=== PATIENT | male | born 1985 | race Two or more races ===

== ENCOUNTER 2016-08-07 13:50 | Observation (INO) | payer SELFPAY ==
[~2016-08-07] VITALS: Ht 152.4 cm; Wt 73.3 kg
[2016-08-07 14:09] VITALS: BP 116/80; PULSE 105; RESP 16; TEMP 99.9; O2SAT 100
--- NOTE | 2016-08-07 14:40 | PD ---
HPI Chief Complaint: Abdominal Pain Time Seen by Provider: 14:26 Travel History International Travel<30 days: No Contact w/Intl Traveler<30days: No Traveled to known affect area: No History of Present Illness HPI Patient is a 31-year-old Nigerien-speaking male who presents to emergency room with complaints of lower abdominal pain. Patient reports that pain began this morning, reports that he was able to tolerate pain for a few hours but it became unbearable while at work. Reports that his whole lower abdomen hurts him but pain is worse in RLQ. Patient with no fevers or chills. Patient with no nausea or vomiting. Patient denies consultation diarrhea. Patient reports no pain like this in the past. PFSH Past Medical History Diabetes: Yes Patient Takes Glucophage: No Past Surgical History Surgical History: No Previous Surgery Social History Alcohol Use: Yes (OCCAS) Tobacco Use: Yes (RARELY) Substance Use: Yes (MARIJUANA LAST WEEK) Allergies-Medications (Allergen,Severity, Reaction): Coded Allergies: No Known Allergies (Unverified , 08/07/16) Reported Meds & Prescriptions Reported Meds & Active Scripts Active No Active Prescriptions or Reported Medications Review of Systems General / Constitutional: No: Fever Eyes: No: Visual changes HENT: No: Headaches Cardiovascular: No: Chest Pain or Discomfort Respiratory: No: Shortness of Breath Gastrointestinal: Positive: Abdominal Pain, No: Nausea, Vomiting, Diarrhea, Constipation Genitourinary: No: Dysuria Musculoskeletal: No: Pain Skin: No Rash Neurologic: No: Weakness Psychiatric: No: Depression Endocrine: No: Polydipsia Hematologic/Lymphatic: No: Easy Bruising Physical Exam Narrative GENERAL: Mild distress SKIN: Warm and dry. HEAD: Atraumatic. Normocephalic. EYES: Pupils equal and round. No scleral icterus. No injection or drainage. ENT: No nasal bleeding or discharge. Mucous membranes pink and moist. NECK: Trachea midline. No JVD. CARDIOVASCULAR: Regular rate and rhythm. No murmur appreciated. RESPIRATORY: No accessory muscle use. Clear to auscultation. Breath sounds equal bilaterally. GASTROINTESTINAL: Abdomen soft, increased tenderness to lower abdomen with guarding with palpation to right lower quadrant MUSCULOSKELETAL: No obvious deformities. No clubbing. No cyanosis. No edema. NEUROLOGICAL: Awake and alert. No obvious cranial nerve deficits. Motor grossly within normal limits. Normal speech. PSYCHIATRIC: Appropriate mood and affect; insight and judgment normal. Data Data Last Documented VS Vital Signs Date Time Temp Pulse Resp B/P Pulse Ox O2 Delivery O2 Flow Rate FiO2 08/07/16 16:27 90 18 134/74 98 Room Air 08/07/16 14:09 99.9 Orders Urinalysis - C+S If Indicated (08/07/16 14:16) Complete Blood Count With Diff (08/07/16 14:27) Comprehensive Metabolic Panel (08/07/16 14:27) Lipase (08/07/16 14:27) Prothrombin Time / Inr (Pt) (08/07/16 14:27) Act Partial Throm Time (Ptt) (08/07/16 14:27) Ct Abd/Pel W Iv Contrast(Rout) (08/07/16 14:27) Iv Access Insert/Monitor (08/07/16 14:27) Oral Contrast - Adult (08/07/16 15:21) Morphine Inj (Morphine Inj) (08/07/16 15:45) Sodium Chlor 0.9% 1000 Ml Inj (Ns 1000 M (08/07/16 15:45) Iohexol 350 Inj (Omnipaque 350 Inj) (08/07/16 15:57) Ciprofloxacin 400 Mg Premix (Cipro 400 M (08/07/16 16:30) Metronidazole 500 Mg Inj (Flagyl 500 Mg (08/07/16 16:30) Labs Laboratory Tests Test 08/07/16 08/07/16 14:40 14:44 Urine Collection Type CLEAN CATCH Urine Color DARK-YELLOW Urine Turbidity CLEAR Urine pH 7.0 Urine Specific [place] 1.024 Urine Protein TRACE mg/dL Urine Glucose (UA) 100 mg/dL Urine Ketones TRACE mg/dL Urine Occult Blood NEG Urine Nitrite NEG Urine Bilirubin NEG Urine Leukocyte Esterase NEG Urine WBC 0-2 /hpf Microscopic Urinalysis Comment CULT NOT INDICATED White Blood Count 15.0 TH/MM3 Red Blood Count 4.42 MIL/MM3 Hemoglobin 13.2 GM/DL Hematocrit 37.4 % Mean Corpuscular Volume 84.7 FL Mean Corpuscular Hemoglobin 29.8 PG Mean Corpuscular Hemoglobin 35.2 % Concent Red Cell Distribution Width 11.6 % Platelet Count 241 TH/MM3 Mean Platelet Volume 7.4 FL Neutrophils (%) (Auto) 82.4 % Lymphocytes (%) (Auto) 12.8 % Monocytes (%) (Auto) 4.4 % Eosinophils (%) (Auto) 0.1 % Basophils (%) (Auto) 0.3 % Neutrophils # (Auto) 12.4 TH/MM3 Lymphocytes # (Auto) 1.9 TH/MM3 Monocytes # (Auto) 0.7 TH/MM3 Eosinophils # (Auto) 0.0 TH/MM3 Basophils # (Auto) 0.0 TH/MM3 CBC Comment DIFF FINAL Differential Comment Prothrombin Time 10.5 SEC Prothromb Time International 1.0 RATIO Ratio Activated Partial 26.2 SEC Thromboplast Time Sodium Level 136 MEQ/L Potassium Level 3.4 MEQ/L Chloride Level 101 MEQ/L Carbon Dioxide Level 27.4 MEQ/L Anion Gap 8 MEQ/L Blood Urea Nitrogen 11 MG/DL Creatinine 0.86 MG/DL Estimat Glomerular Filtration 102 ML/MIN Rate Random Glucose 136 MG/DL Calcium Level 8.5 MG/DL Total Bilirubin 1.2 MG/DL Aspartate Amino Transf 10 U/L (AST/SGOT) Alanine Aminotransferase 23 U/L (ALT/SGPT) Alkaline Phosphatase 131 U/L Total Protein 7.6 GM/DL Albumin 3.6 GM/DL Lipase 80 U/L MDM Medical Decision Making Medical Screen Exam Complete: Yes Emergency Medical Condition: Yes Interpretation(s) Vital Signs Date Time Temp Pulse Resp B/P Pulse Ox O2 Delivery O2 Flow Rate FiO2 08/07/16 14:09 99.9 105 16 116/80 100 Differential Diagnosis Acute appendicitis, colitis, cystitis, gastroenteritis Narrative Course Nigerien automotive parts interpreter was utilized to speak to patient Patient is a 31-year-old male who presents to emergency room with complaints of abdominal pain. Patient reports that he has been having increased lower abdominal pain since this morning. Patient with no fevers or chills, no nausea or vomiting, no constipation or diarrhea. On evaluation, patient with guarding on evaluation with palpation to right lower quadrant. Discussed with patient need for labs as well as CT of the abdomen pelvis to evaluate for possible appendicitis. Patient is agreeable to studies cbc: wbc 15 hgb: 13.2 hct: 37.4 platelets: 241 bmp: sodium: 136 chloride; 27.4 potassium: 3.4 bun:11 cr: 0.86 glucose 136 ast 10 alt 23 alk phos 131 lipase 80 total bili: 1.2 Patient with a 15,000 white count and a CAT scans any which shows: Last Impressions Abdomen/Pelvis CT 08/07/16 1427 Signed Impressions: Service Date/Time: Sunday, August 07, 2016 15:51 - CONCLUSION: Abnormal right lower quadrant with inflammatory changes and a small amount of free fluid off the tip of the cecum. In the right lower quadrant question as to an appendicolith and additionally suggestion that there may be in the differential inflammatory change in the distal small bowel terminal ileum such as a possibility of regional enteritis Heriberto Cavazos MD Based on clinical evaluation of patient, patient most likely with acute appendicitis. There is suggestions that differential may include possibly regional enteritis, patient with no nausea vomiting and diarrhea this time. Patient with point tenderness to right lower quadrant with increased inflammatory changes and a small amount of free fluid at the tip of the cecum. There is suggestion of appendicolith versus dilated appendix in right lower quadrant. Call made to Gen. 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 Patient is agreeable to transfer to [facility] for surgical intervention for his appendicitis. I discussed case with Dr. Stanley who accepts pt to service, request that I call medicine and see if they would like to take this patient primarily on their service or just be a system consultant to manage DMII which patient has not been on any medications for in the past few years. I did talk to Dr. Zhang, she does not want patient to manage her serve as primarily and request that the patient be admitted to medicine service. She will manage pt's dm as a system consultant. I will place formal consult for medicine for DM management Physician Communication Physician Communication case reviewed with Dr. Rob who accepts pt to service at [facility]. case reviewed with Dr Zhang who will see patient in consult to manage DMII Diagnosis Primary Impression: Acute appendicitis Qualified Code: K35.3 - Acute appendicitis with localized peritonitis Additional Impression: Diabetes mellitus Admitting Information Admitting Physician Requests: Observation Scripts No Active Prescriptions or Reported Meds Ginny Pena DO Aug 07, 2016 14:40
[2016-08-07 14:51] LABS: AUTOMATED NEUTROPHIL # 12.4 TH/MM3 (1.8-7.7); BASOPHIL % 0.3 % (0.0-2.0); EOSINOPHIL % 0.1 % (0.0-4.0); HEMATOCRIT 37.4 % (39.0-51.0); HEMO FLAGS DIFF FINAL; LYMPH % 12.8 % (9.0-44.0); LYMPHOCYTE # 1.9 TH/MM3 (1.0-4.8); MEAN CELL VOLUME 84.7 FL (80.0-100.0); MEAN CORPUSCULAR HEMOGLOBIN 29.8 PG (27.0-34.0); MEAN CORPUSCULAR HGB CONC 35.2 % (32.0-36.0); MONO % 4.4 % (0.0-8.0); NEUT % 82.4 % (16.0-70.0); PLATELET COUNT 241 TH/MM3 (150-450); RED BLOOD COUNT 4.42 MIL/MM3 (4.50-5.90); RED CELL DISTRIBUTION WIDTH 11.6 % (11.6-17.2)
[2016-08-07 14:52] LABS: BLOOD, URINE NEG (NEG); GLUCOSE,URINE 100 mg/dL (NEG); KETONE, URINE TRACE mg/dL (NEG); NITRITE,URINE NEG (NEG)
[2016-08-07 14:59] LABS: METHOD OF COLLECTION CLEAN CATCH; URINE COLOR DARK-YELLOW (YELLW/STRAW)
[2016-08-07 15:00] LABS: COMMENT (UR) CULT NOT INDICATED; COMMENT2 (UR) MUCOUS PRESENT; CULTURE IF INDICATED CULT NOT INDICATED; WBC, URINE 0-2 /hpf (0-5)
[2016-08-07 15:02] LABS: CHLORIDE 101 MEQ/L (98-107); POTASSIUM 3.4 MEQ/L (3.5-5.1); SODIUM (NA) 136 MEQ/L (136-145)
[2016-08-07 15:06] LABS: ANION GAP 8 MEQ/L (5-15); APTT (PATIENT) 26.2 SEC (24.3-30.1); BICARBONATE 27.4 MEQ/L (21.0-32.0); BLOOD UREA NITROGEN 11 MG/DL (7-18); PROTHROMBIN TIME - PATIENT 10.5 SEC (9.8-11.6)
[2016-08-07 15:08] LABS: ALT (GPT) 23 U/L (12-78); AST (GOT) 10 U/L (15-37)
[2016-08-07 15:09] LABS: GLOMERULAR FILTRATION RATE 102 ML/MIN (>89)
[2016-08-07 15:10] LABS: TOTAL BILIRUBIN ADULT 1.2 MG/DL (0.2-1.0)
[2016-08-07 15:11] LABS: ALKALINE PHOSPHATASE 131 U/L (45-117)
[2016-08-07] MEDS ORDERED: SODIUM CHLOR 0.9% 1000 ML INJ 1,000 ML IV ONE (15:45)
[2016-08-07] MEDS ORDERED: MORPHINE SULFATE 4 MG/ML INJ IV PUSH ONE (15:45)
[2016-08-07] MEDS ORDERED: IOHEXOL 350 MG/ML 10 ML VIAL (for RAD DIAG) IV ONE (15:57)
--- NOTE | 2016-08-07 16:18 | RADHPO ---
EXAM DATE/TIME: 08/07/2016 15:51 [facility] COMPARISON: No previous studies available for comparison. INDICATIONS : Right lower quadrant abdomen pain today. IV CONTRAST: 100 cc Omnipaque 350 (iohexol) IV ORAL CONTRAST: No oral contrast ingested. RADIATION DOSE: 11.59 CTDIvol (mGy) MEDICAL HISTORY : Diabetes mellitus type 2. SURGICAL HISTORY : None. ENCOUNTER: Initial ACUITY: 1 day PAIN SCALE: 8/10 LOCATION: Right lower quadrant abdomen TECHNIQUE: Volumetric scanning of the abdomen and pelvis was performed. Using automated exposure control and adjustment of the mA and/or kV according to patient size, radiation dose was kept as low as reasonably achievable to obtain optimal diagnostic quality images. FINDINGS: LOWER LUNGS: The visualized lower lungs are clear. LIVER: Homogeneous density without lesion. There is no dilation of the biliary tree. No calcifi ed gallstones. SPLEEN: Normal size without lesion. PANCREAS: Within normal limits. KIDNEYS: Normal in size and shape. There is no mass, stone or hydronephrosis. ADRENAL GLANDS: Within normal limits. VASCULAR: There is no aortic aneurysm. BOWEL/MESENTERY: There are inflammatory changes in the right lower quadrant with a question as to an appendicolith and appendix dilatation versus intrinsic small bowel disease such as regional enter itis. Small amount of free fluid is noted off the tip of the cecum ABDOMINAL WALL: Within normal limits. RETROPERITONEUM: BLADDER: No wall thickening or mass. REPRODUCTIVE: Within normal limits. INGUINAL: There is no lymphadenopathy or hernia. MUSCULOSKELETAL: Within normal limits for patient age. CONCLUSION: Abnormal right lower quadrant with inflammatory changes and a small amount of free fl uid off the tip of the cecum. In the right lower quadrant question as to an appendicolith and additio ike suggestion that there may be in the differential inflammatory change in the distal small bowel terminal ileum such as a possibility of regional enteritis Heriberto Cavazos MD on August 07, 2016 at 16:13 Board Certified Radiologist. This report was verified electronically.
[2016-08-07 16:27] VITALS: BP 134/74; PULSE 90; RESP 18; O2SAT 98
[2016-08-07] MEDS ORDERED: metroNIDAZOLE 500 MG INJ 100 ML IV ONE (16:30)
[2016-08-07] MEDS ORDERED: CIPROFLOXACIN 400 MG PREMIX 200 ML IV ONE (16:30)
[2016-08-07] MEDS ORDERED: GLUCAGON 1 MG/ML VIAL OTHER PRN (17:00)
[2016-08-07] MEDS ORDERED: DEXTROSE 50% IN WATER 50 ML VIAL(D50) IV PUSH PRN (17:00)
[2016-08-07 19:08] VITALS: BP 126/67; PULSE 94; RESP 18; O2SAT 99
[2016-08-07 20:05] VITALS: BP 136/70
[2016-08-07] MEDS ORDERED: SODIUM CHLORIDE 0.9% FLUSH 5 ML FLUSH IV FLUSH PRN (20:30)
[2016-08-07] MEDS ORDERED: MORPHINE SULFATE 4 MG/ML INJ IV PRN ×2 (20:30)
[2016-08-07 20:45] VITALS: BP 113/64; PULSE 96; RESP 16; TEMP 101.7; O2SAT 97
[2016-08-07] MEDS: INSULIN ASPART SUPPLEMENTAL SCALE SQ SCH (21:00)
[2016-08-07] MEDS: SODIUM CHLORIDE 0.9% FLUSH 5 ML FLUSH IV FLUSH SCH (22:24)
[2016-08-07] MEDS: SODIUM CHLOR 0.9% 1000 ML INJ 1,000 ML IV SCH (22:25)
[2016-08-07 22:35] LABS: HEMOGLOBIN A1b 1.1 %; HEMOGLOBIN Ao 78.8 %; HEMOGLOBIN F 1.7 %; HEMOGLOBIN LA1C 2.1 %; HEMOGLOBIN P3 4.3 %
[2016-08-08 00:31] VITALS: BP 109/59; PULSE 92; RESP 16; TEMP 100.1; O2SAT 98
--- NOTE | 2016-08-08 00:54 | RADRPT ---
EXAM DATE/TIME: 08/08/2016 00:17 [facility] COMPARISON: No previous studies available for comparison. INDICATIONS : Fever. MEDICAL HISTORY : Diabetes mellitus type II. SURGICAL HISTORY : None. ENCOUNTER: Initial ACUITY: 1 day PAIN SCORE: 0/10 LOCATION: Bilateral chest FINDINGS: PA and lateral views of the chest demonstrate the lungs to be symmetrically aerated without evidence of mass, infiltrate or effusion. The cardiomediastinal contours are unremarkable. Osseous structure s are intact. CONCLUSION: Normal examination for a patient of this age. Armani Vera MD on August 08, 2016 at 0:52 Board Certified Radiologist. This report was verified electronically.
[2016-08-08] MEDS: metroNIDAZOLE 500 MG INJ 100 ML IV SCH ×3 (01:53→17:46)
[2016-08-08] MEDS: SODIUM CHLOR 0.9% 1000 ML INJ 1,000 ML IV SCH ×3 (04:06→20:29)
[2016-08-08 04:31] VITALS: BP 111/57; PULSE 88; RESP 16; TEMP 99.8; O2SAT 98
[2016-08-08] MEDS ORDERED: CIPROFLOXACIN 400 MG PREMIX 200 ML IV SCH (05:00)
[2016-08-08] MEDS: INSULIN ASPART SUPPLEMENTAL SCALE SQ SCH ×4 (05:16→20:29)
[2016-08-08] MEDS ORDERED: BUPIVACAINE/EPINEPHRINE 0.25% PF 10 ML VIAL ONE (06:16)
[2016-08-08] MEDS ORDERED: FAMOTIDINE 20 MG/2 ML VIAL ONE (06:46)
[2016-08-08] MEDS ORDERED: MIDAZOLAM HCL 2 MG/2 ML VIAL ONE (06:46)
[2016-08-08] MEDS ORDERED: fentaNYL CITRATE 250 MCG/5 ML AMP ONE (06:46)
[2016-08-08] MEDS ORDERED: DICLOFENAC SODIUM 37.5 MG/ML VIAL IV PUSH ONE (06:47)
[2016-08-08] MEDS ORDERED: DEXAMETHASONE SOD PHOS 4 MG/ML VIAL ONE (06:51)
[2016-08-08] MEDS ORDERED: ACETAMINOPHEN 1000 MG/100 ML VIAL IV ONE (06:53)
[2016-08-08] MEDS ORDERED: DO NOT ADM ANY ANTICOAGULANT DRUGS XX PRN (08:15)
[2016-08-08] MEDS ORDERED: *morphine SULFATE 8 MG/ML PERIprocedure ONLY ONE (08:26)
[2016-08-08] MEDS ORDERED: MAGNESIUM HYDROXIDE SUSP 30 ML CUP PO PRN (08:30)
--- NOTE | 2016-08-08 08:36 | HHI.PR ---
Immediate Post Op Note Procedure Date: Aug 08, 2016 Pre Op Diagnosis: (1) Acute appendicitis Post Op Diagnosis: (1) Appendicitis with perforation Surgeon: Khoi Stanley [employer] Specialist(s): none Procedure: laparoscopic appendectomy Findings: perforated appendicitis Complications: none Specimen(s) removed: appendix Estimated blood loss: 10ml Anesthesia: General, Local Drains: VINAY IVF Patient to: PACU Patient Condition: Good Khoi Stanley MD Aug 08, 2016 08:36
[2016-08-08] MEDS: SODIUM CHLORIDE 0.9% FLUSH 5 ML FLUSH IV FLUSH SCH ×2 (09:00→20:29)
--- NOTE | 2016-08-08 09:31 | MH ---
cc: BERNADINEMITCH PALACIOS DATE OF ADMISSION: 08/07/2016 CHIEF COMPLAINT Acute appendicitis. HISTORY OF PRESENT ILLNESS The patient is a 31-year-old Luxembourgish-speaking male with a history of diabetes mellitus who presented to the [facility] with 24 hours of abdominal pain. The patient was noted to have right lower quadrant abdominal pain with leukocytosis and low grade fever. CT scan was performed in [place] which did show dilated appendix with appendicolith concerning for appendicitis versus also possible ileitis due to inflammation in the pelvis. The patient was transferred to [facility] and arrived this morning. The patient has right lower quadrant pain. Denies any nausea, vomiting, diarrhea, constipation or fever, chills, night sweats at this time. Pain is well-controlled with IV pain medication in the hospital. REVIEW OF SYSTEMS A 12-point review of systems is conducted with the patient and is negative except for the pertinent positives mentioned above in the history of present illness. PAST MEDICAL HISTORY Diabetes. PAST SURGICAL HISTORY None. ALLERGIES NO KNOWN DRUG ALLERGIES. MEDICATIONS None. SOCIAL HISTORY The patient uses alcohol and tobacco occasionally and occasionally uses marijuana. No other illicit drugs. FAMILY HISTORY Noncontributory. PHYSICAL EXAMINATION VITAL SIGNS: Temperature 99.8 degrees, heart rate 88, blood pressure 111/57, O2 saturation 98%. GENERAL: Patient is a well-developed, well-nourished male in no acute distress. HEENT: Head is normocephalic, atraumatic. Pupils are round, reactive, accommodation to light. Sclerae is anicteric. Mucous membranes are moist. NECK: Neck is supple. No JVD. LUNGS: Clear to auscultation bilaterally. Nonlabored breathing pattern. HEART: Regular rhythm. No murmurs. ABDOMEN: Hypoactive bowel sounds. Tenderness on right lower quadrant, focal peritonitis without diffuse peritonitis or rebound tenderness. No surgical scars. No hernias. No ascites. No organomegaly. BACK: No CVA tenderness. EXTREMITIES: No clubbing, cyanosis or edema. Warm and perfuse. NEUROLOGIC: The patient is awake, alert and appropriate, and broken Turkmen. Nonfocal peripheral exam. Cranial nerves II-XII grossly intact. ASSESSMENT/PLAN The patient is a 31-year-old male with right lower quadrant pain for 24 hours, likely acute appendicitis. I discussed with the patient risks, benefits, alternatives to laparoscopic appendectomy including bleeding, organ injury, infection and he agrees to undergo the procedure. Will proceed with laparoscopic appendectomy this morning based on the operating room availability. MD JANETH Beverly/GOGO /8:39 AM /9:07 AM
[2016-08-08 09:39] LABS: AUTOMATED NEUTROPHIL # 11.9 TH/MM3 (1.8-7.7); BASOPHIL # 0.1 TH/MM3 (0-0.2); BASOPHIL % 0.5 % (0.0-2.0); HEMATOCRIT 35.3 % (39.0-51.0); HEMO FLAGS DIFF FINAL; LYMPH % 7.6 % (9.0-44.0); MEAN CELL VOLUME 87.8 FL (80.0-100.0); MEAN CORPUSCULAR HEMOGLOBIN 29.3 PG (27.0-34.0); MEAN CORPUSCULAR HGB CONC 33.4 % (32.0-36.0); MONO % 3.7 % (0.0-8.0); NEUT % 88.2 % (16.0-70.0); PLATELET COUNT 215 TH/MM3 (150-450); RED BLOOD COUNT 4.02 MIL/MM3 (4.50-5.90); RED CELL DISTRIBUTION WIDTH 12.8 % (11.6-17.2); WHITE BLOOD COUNT 13.5 TH/MM3 (4.0-11.0)
[2016-08-08 10:04] LABS: BICARBONATE 25.7 MEQ/L (21.0-32.0); MAGNESIUM 1.6 MG/DL (1.5-2.5); POTASSIUM 3.7 MEQ/L (3.5-5.1)
[2016-08-08] MEDS: ENOXAPARIN SODIUM 30 MG/0.3 ML SYRINGE SQ SCH ×2 (10:16→20:29)
[2016-08-08] MEDS: PIPERACIL-TAZO 3.375 GM PREMIX 50 ML IV SCH ×3 (11:18→20:28)
[2016-08-08] MEDS: ACETAMINOPHEN/HYDROcodone 325 MG/5 MG TAB PO PRN ×2 (11:36→17:51)
[2016-08-08 12:00] VITALS: BP 99/53; PULSE 78; RESP 18; TEMP 96.2; O2SAT 98
[2016-08-08] MEDS ORDERED: PROPOFOL 200 MG/20 ML AMP IV ONE (12:00)
[2016-08-08] MEDS ORDERED: NEOSTIGMINE 3 MG/3 ML SYR IV ONE (12:00)
[2016-08-08] MEDS ORDERED: ONDANSETRON HCL 4 MG/2 ML VIAL IV PUSH ONE (12:00)
[2016-08-08 16:00] VITALS: BP 119/65; PULSE 73; RESP 18; TEMP 97.5; O2SAT 100
[2016-08-08 19:39] VITALS: O2SAT 98
[2016-08-08 22:07] VITALS: BP 100/49; PULSE 71; RESP 16; TEMP 97.6; O2SAT 99
--- NOTE | 2016-08-08 23:57 | HHI.HP ---
HPI Service [facility] Primary Care Physician No Primary Care Physician Admission Diagnosis Acute Appendicitis Diagnoses: Travel History International Travel<30 Days: No Contact w/Intl Traveler <30 Da: No Traveled to Known Affected Are: No History of Present Illness patient seen this morning around 10 AM. Patient was offered certified equine dentist, however opted to use his friends at bedside. He reports abdominal pain is much better after surgery. He denies any nausea or vomiting. Patient reports that he initially began to have intermittent sharp pain in the right lower quadrant around 5 AM on 08/07. He reports feeling very cold, however had no measured fevers. He reports nausea and nonbloody vomiting, however says that this is better since admission to the hospital. CT abdomen showed suspected appendicitis, and patient underwent appendectomy. He reports that pain is currently controlled, and nausea resolved. He denies any chest pain or shortness of breath. Of note, patient does report an 8 year history of diabetes, however takes no medications for this as they are too expensive Review of Systems Other performed and negative except for HPI and past medical history. Past Family Social History Past Medical History Patient reports 8 year history of diabetes Past Surgical History Patient denies any history of surgery Reported Medications patient denies taking any medications. Allergies: Coded Allergies: No Known Allergies (Unverified , 08/07/16) Family History Patient reports a brother with diabetes. Social History Patient smokes one box of cigarettes on average per week for the past 5 years. Patient drinks occasionally. Patient denies any illicit drugs to me, however marijuana is listed on intake history. Physical Exam Vital Signs Vital Signs Date Time Temp Pulse Resp B/P Pulse Ox O2 Delivery O2 Flow Rate FiO2 08/08/16 22:07 97.6 71 16 100/49 99 08/08/16 19:45 16 08/08/16 19:39 98 Nasal Cannula 1.00 08/08/16 16:00 97.5 73 18 119/65 100 08/08/16 12:00 96.2 78 18 99/53 98 08/08/16 09:00 99.1 78 12 114/63 99 Nasal Cannula 2 08/08/16 08:45 72 12 114/63 99 08/08/16 08:30 73 18 113/65 98 Nasal Cannula 2 08/08/16 08:16 98.9 83 14 112/62 97 Nasal Cannula 2 08/08/16 04:31 99.8 88 16 111/57 98 08/08/16 00:31 100.1 92 16 109/59 98 Physical Exam GENERAL: This is a well-nourished, well-developed patient, in no apparent distress.alert and oriented 3. SKIN: No rashes, ecchymoses or lesions. Cool and dry. HEAD: Atraumatic. Normocephalic. No temporal or scalp tenderness. EYES: Pupils equal round and reactive. Extraocular motions intact. No scleral icterus. No injection or drainage. ENT: Nose without bleeding, purulent drainage or septal hematoma. Throat without erythema, tonsillar hypertrophy or exudate. Uvula midline. Airway patent. NECK: Trachea midline. No JVD or lymphadenopathy. Supple, nontender, no meningeal signs. CARDIOVASCULAR: Regular rate and rhythm without murmurs, gallops, or rubs. RESPIRATORY: Clear to auscultation. Breath sounds equal bilaterally. No wheezes , rales, or rhonchi. GASTROINTESTINAL: Abdomen soft, non-tender, nondistended. postsurgical. Dermabond on laparoscopic incision. Drain in place with serosanguineous fluid. MUSCULOSKELETAL: Extremities without clubbing, cyanosis, or edema. No joint tenderness, effusion, or edema noted. No calf tenderness. Negative Homans sign bilaterally. NEUROLOGICAL: Awake and alert. Cranial nerves II through XII intact. Motor and sensory grossly within normal limits. Five out of 5 muscle strength in all muscle groups. Normal speech. Laboratory Laboratory Tests Test 08/08/16 09:27 White Blood Count 13.5 Red Blood Count 4.02 Hemoglobin 11.8 Hematocrit 35.3 Mean Corpuscular Volume 87.8 Mean Corpuscular Hemoglobin 29.3 Mean Corpuscular Hemoglobin 33.4 Concent Red Cell Distribution Width 12.8 Platelet Count 215 Mean Platelet Volume 7.8 Neutrophils (%) (Auto) 88.2 Lymphocytes (%) (Auto) 7.6 Monocytes (%) (Auto) 3.7 Eosinophils (%) (Auto) 0.0 Basophils (%) (Auto) 0.5 Neutrophils # (Auto) 11.9 Lymphocytes # (Auto) 1.0 Monocytes # (Auto) 0.5 Eosinophils # (Auto) 0.0 Basophils # (Auto) 0.1 CBC Comment DIFF FINAL Differential Comment Sodium Level 135 Potassium Level 3.7 Chloride Level 102 Carbon Dioxide Level 25.7 Anion Gap 7 Blood Urea Nitrogen 11 Creatinine 0.91 Estimat Glomerular Filtration 96 Rate Random Glucose 222 Lactic Acid Level 0.9 Calcium Level 7.6 Magnesium Level 1.6 Date/Time Procedure Status Source Growth 08/08/16 01:57 Aerobic Blood Culture Received Blood Peripheral Pending 08/08/16 01:57 Anaerobic Blood Culture Received Blood Peripheral Pending Result Diagram: 08/08/16 0927 08/08/16 0927 Imaging Last Impressions Abdomen/Pelvis CT 08/07/16 1427 Signed Impressions: Service Date/Time: Sunday, August 07, 2016 15:51 - CONCLUSION: Abnormal right lower quadrant with inflammatory changes and a small amount of free fluid off the tip of the cecum. In the right lower quadrant question as to an appendicolith and additionally suggestion that there may be in the differential inflammatory change in the distal small bowel terminal ileum such as a possibility of regional enteritis Heriberto Cavazos MD Chest X-Ray 08/07/16 0000 Signed Impressions: Service Date/Time: July 00:17 - CONCLUSION: Normal examination for a patient of this age. Armani Vera MD Assessment and Plan Assessment and Plan //Sepsis on admission. Tachycardia. Leukocytosis, fever. Improving after appendectomy. //Acute appendicitis, //status post appendectomy 08/08. Post surgical management as per surgical service Pain management as per surgical service Patient with noted fever 101.7 overnight. Switched to Zosyn today due to possibility of resistant gut bacteria. No fevers today. Continue monitor Chronic uncontrolled diabetes mellitus A1c 10. Patient diagnosed many years ago. Preliminary limited financial means. Continue on insulin. tobacco educator. Patient has systolic heart murmur. Vital signs are stable. Discussed with patient. We'll need follow-up with a primary care physician. Tobaccoism. Cessation strongly advised. Prophylaxis. As per surgical service. Code Status full code Discussed Condition With patient, nurse Physician Certification 2 Midnight Certification Type: Admission for Inpatient Services Order for Inpatient Services The services are ordered in accordance with Medicare regulations or non- Medicare payer requirements, as applicable. In the case of services not specified as inpatient-only, they are appropriately provided as inpatient services in accordance with the 2-midnight benchmark. Estimated LOS (days): 3 days is the estimated time the patient will need to remain in the hospital, assuming treatment plan goals are met and no additional complications. Post-Hospital Plan: Not yet determined Espinoza Caraballo MD Aug 08, 2016 23:57
[2016-08-09] VITALS (7 sets, daily range): BP systolic 97–139; BP diastolic 54–84; PULSE 52–72; RESP 16–20; TEMP 96.7–97.6; O2SAT 97–100
[2016-08-09] MEDS: ACETAMINOPHEN/HYDROcodone 325 MG/5 MG TAB PO PRN ×4 (01:46→14:43)
[2016-08-09] MEDS: SODIUM CHLOR 0.9% 1000 ML INJ 1,000 ML IV SCH ×4 (04:30→20:30)
[2016-08-09] MEDS: PIPERACIL-TAZO 3.375 GM PREMIX 50 ML IV SCH ×4 (04:55→21:58)
[2016-08-09] MEDS: INSULIN ASPART SUPPLEMENTAL SCALE SQ SCH ×4 (04:59→21:00)
[2016-08-09 07:38] LABS: AUTOMATED NEUTROPHIL # 10.2 TH/MM3 (1.8-7.7); BASOPHIL % 0.2 % (0.0-2.0); EOSINOPHIL % 0.1 % (0.0-4.0); HEMATOCRIT 31.3 % (39.0-51.0); HEMO FLAGS DIFF FINAL; LYMPH % 14.5 % (9.0-44.0); LYMPHOCYTE # 1.9 TH/MM3 (1.0-4.8); MEAN CELL VOLUME 87.2 FL (80.0-100.0); MEAN CORPUSCULAR HGB CONC 34.4 % (32.0-36.0); MONO % 5.7 % (0.0-8.0); NEUT % 79.5 % (16.0-70.0); PLATELET COUNT 194 TH/MM3 (150-450); RED BLOOD COUNT 3.59 MIL/MM3 (4.50-5.90); RED CELL DISTRIBUTION WIDTH 12.6 % (11.6-17.2); WHITE BLOOD COUNT 12.8 TH/MM3 (4.0-11.0)
[2016-08-09 07:42] LABS: BICARBONATE 26.4 MEQ/L (21.0-32.0); POTASSIUM 3.3 MEQ/L (3.5-5.1)
[2016-08-09] MEDS: SODIUM CHLORIDE 0.9% FLUSH 5 ML FLUSH IV FLUSH SCH ×2 (09:00→21:58)
[2016-08-09] MEDS: INSULIN HUMAN NPH 1,000 UNITS/10 ML VIAL SQ SCH ×2 (10:00→17:59)
[2016-08-09] MEDS: ENOXAPARIN SODIUM 30 MG/0.3 ML SYRINGE SQ SCH ×2 (10:01→21:59)
--- NOTE | 2016-08-09 15:05 | HHI.PR ---
Subjective Subjective Notes Resting in bed Pain controlled Objective Vitals/I&O Vital Signs Date Time Temp Pulse Resp B/P Pulse Ox O2 Delivery O2 Flow Rate FiO2 08/09/16 12:00 96.7 68 20 109/63 98 08/09/16 09:30 Nasal Cannula 1.00 Labs Laboratory Tests Test 08/09/16 06:42 White Blood Count 12.8 Red Blood Count 3.59 Hemoglobin 10.8 Hematocrit 31.3 Mean Corpuscular Volume 87.2 Mean Corpuscular Hemoglobin 30.0 Mean Corpuscular Hemoglobin 34.4 Concent Red Cell Distribution Width 12.6 Platelet Count 194 Mean Platelet Volume 8.5 Neutrophils (%) (Auto) 79.5 Lymphocytes (%) (Auto) 14.5 Monocytes (%) (Auto) 5.7 Eosinophils (%) (Auto) 0.1 Basophils (%) (Auto) 0.2 Neutrophils # (Auto) 10.2 Lymphocytes # (Auto) 1.9 Monocytes # (Auto) 0.7 Eosinophils # (Auto) 0.0 Basophils # (Auto) 0.0 CBC Comment DIFF FINAL Differential Comment Sodium Level 138 Potassium Level 3.3 Chloride Level 104 Carbon Dioxide Level 26.4 Anion Gap 8 Blood Urea Nitrogen 7 Creatinine 0.85 Estimat Glomerular Filtration 104 Rate Random Glucose 159 Calcium Level 7.9 Date/Time Procedure Status Source Growth 08/08/16 01:57 Aerobic Blood Culture - Preliminary Resulted Blood Peripheral NO GROWTH IN 1 DAY 08/08/16 01:57 Anaerobic Blood Culture - Preliminary Resulted Blood Peripheral NO GROWTH IN 1 DAY Cardiovascular: Regular Lungs: Clear Abdomen: Other (abd soft; post op tenderness; lap sites c/d/i; VINAY with SS drainage ) Extremities: No edema A/P Assessment and Plan 31 year old male POD1 lap appy; perforated -Advance to 1800 ADA -Medical management following for diabetes management -Transition to PO antibiotics tomorrow -OOB -Pain control Chiara Lozada Aug 09, 2016 15:05
[2016-08-09] MEDS ORDERED: AUGM875T PO (15:43)
[2016-08-09] MEDS ORDERED: POTASSIUM CHLORIDE 10 MEQ CONTROLLED RELEASE TAB PO ONE (15:45)
[2016-08-09] MEDS ORDERED: LEVEMIR SQ (15:47)
[2016-08-09] MEDS ORDERED: NOVOLOGP2 SQ (15:47)
[2016-08-09] MEDS ORDERED: INSU1MIS15 (15:47)
[2016-08-09] MEDS ORDERED: GLUCTES12 (15:47)
[2016-08-09] MEDS ORDERED: LANCETS1 MI1 (15:47)
[2016-08-09] MEDS ORDERED: GLUCKIT15 (15:47)
--- NOTE | 2016-08-09 15:51 | HHI.PR ---
Subjective Remarks patient seen this morning around 10 AM. Says he is feeling better. Reports pain is improved. Denies any chest pain or shortness of breath. No bowel movement. Objective Vital Signs Date Time Temp Pulse Resp B/P Pulse Ox O2 Delivery O2 Flow Rate FiO2 08/09/16 12:00 96.7 68 20 109/63 98 08/09/16 09:30 98 Nasal Cannula 1.00 08/09/16 08:10 16 08/09/16 08:00 97.4 52 20 139/84 99 08/09/16 04:00 96.8 70 17 97/54 98 08/09/16 00:00 96.9 70 17 99/54 100 08/08/16 22:07 97.6 71 16 100/49 99 08/08/16 19:45 16 08/08/16 19:39 98 Nasal Cannula 1.00 08/08/16 16:00 97.5 73 18 119/65 100 I/O 08/08/16 08/08/16 08/08/16 08/09/16 08/09/16 08/09/16 07:00 15:00 23:00 07:00 15:00 23:00 Intake Total 1757 ml 480 ml 1440 ml Output Total 480 ml 550 ml 350 ml 350 ml Balance 1277 ml -550 ml 130 ml 1090 ml Intake Oral 480 ml 480 ml 1440 ml IV Total 527 ml Other 750 ml Output Urine Total 200 ml 500 ml 350 ml 350 ml Drainage Total 280 ml 50 ml # Voids 2 2 1 # Bowel Movements 0 Result Diagram: 08/09/1642 08/09/16 0642 Objective Remarks GENERAL: Patient sitting up in bed. Appears comfortable. Alert and oriented. SKIN: Warm and dry. HEAD: Normocephalic. EYES: No scleral icterus. No injection or drainage. NECK: Supple, trachea midline. No JVD. CARDIOVASCULAR: Regular rate and rhythm. continues to have 2/6 systolic murmur in the left sternal border not radiating to the carotids RESPIRATORY: Breath sounds equal bilaterally. No accessory muscle use. GASTROINTESTINAL: Abdomen soft, non-tender, nondistended. MUSCULOSKELETAL: No cyanosis, or edema. BACK: Nontender without obvious deformity. No CVA tenderness. A/P Assessment and Plan ==== 08/09/16 Replaced potassium //Sepsis on admission. Tachycardia. Leukocytosis, fever. Improving after appendectomy. //Acute appendicitis, //status post appendectomy 08/08. Post surgical management as per surgical service Pain management as per surgical service Patient with noted fever 101.7 on admission. 08/08 Switched to Zosyn today due to possibility of resistant gut bacteria. - Continues afebrile. Discussed with general surgery. Plan for transition to by mouth antibiotics, with discharge possibly tomorrow. //Chronic uncontrolled diabetes mellitus A1c 10. Patient diagnosed many years ago. - limited financial means. -Continue on insulin. -Appreciate community nutrition educator. -Will need insulin and diabetic supplies on discharge. Appreciate case management assistance. //Patient has systolic heart murmur. Vital signs are stable. Discussed with patient. We'll need follow-up with a primary care physician. //Hypokalemia. Follow. //Tobaccoism. Cessation strongly advised. //Prophylaxis. As per surgical service. Discharge Planning Possible discharge home tomorrow. Patient is from [place] Patient will need diabetic supplies on discharge. Appreciate case management assistance. Espinoza Caraballo MD Aug 09, 2016 15:51
[2016-08-09] MEDS ORDERED: MAGNESIUM SULFATE 1 GM PREMIX 100 ML IV ONE (16:00)
[2016-08-10 00:31] VITALS: BP 115/61; PULSE 84; RESP 17; TEMP 99.5; O2SAT 97
[2016-08-10] MEDS: PIPERACIL-TAZO 3.375 GM PREMIX 50 ML IV SCH ×2 (03:20→08:18)
[2016-08-10] MEDS: ACETAMINOPHEN/HYDROcodone 325 MG/5 MG TAB PO PRN ×2 (03:25→08:17)
[2016-08-10 04:00] VITALS: BP 124/67; PULSE 97; RESP 18; TEMP 99.8; O2SAT 97
[2016-08-10] MEDS: SODIUM CHLOR 0.9% 1000 ML INJ 1,000 ML IV SCH ×2 (04:30→12:30)
[2016-08-10] MEDS: INSULIN ASPART SUPPLEMENTAL SCALE SQ SCH ×2 (06:42→11:00)
[2016-08-10 07:16] VITALS: BP 130/77; PULSE 85; RESP 20; TEMP 98.2; O2SAT 98
[2016-08-10] MEDS: ENOXAPARIN SODIUM 30 MG/0.3 ML SYRINGE SQ SCH (08:17)
[2016-08-10] MEDS: INSULIN HUMAN NPH 1,000 UNITS/10 ML VIAL SQ SCH (08:17)
[2016-08-10] MEDS: SODIUM CHLORIDE 0.9% FLUSH 5 ML FLUSH IV FLUSH SCH (08:18)
[2016-08-10 09:06] LABS: AUTOMATED NEUTROPHIL # 7.3 TH/MM3 (1.8-7.7); BASOPHIL % 0.3 % (0.0-2.0); EOSINOPHIL # 0.1 TH/MM3 (0-0.4); EOSINOPHIL % 0.5 % (0.0-4.0); HEMATOCRIT 34.3 % (39.0-51.0); HEMO FLAGS DIFF FINAL; LYMPH % 18.5 % (9.0-44.0); LYMPHOCYTE # 1.9 TH/MM3 (1.0-4.8); MEAN CELL VOLUME 87.1 FL (80.0-100.0); MEAN CORPUSCULAR HEMOGLOBIN 29.5 PG (27.0-34.0); MEAN CORPUSCULAR HGB CONC 33.9 % (32.0-36.0); MONO % 7.7 % (0.0-8.0); PLATELET COUNT 235 TH/MM3 (150-450); RED BLOOD COUNT 3.93 MIL/MM3 (4.50-5.90); RED CELL DISTRIBUTION WIDTH 12.6 % (11.6-17.2)
[2016-08-10 09:29] LABS: BICARBONATE 25.5 MEQ/L (21.0-32.0); POTASSIUM 3.3 MEQ/L (3.5-5.1)
[2016-08-10] MEDS ORDERED: LEVEMIR SQ (10:05)
[2016-08-10] MEDS ORDERED: POTASSIUM CHLORIDE 25 MEQ EFFERVESCENT TAB PO ONE (10:15)
[2016-08-10] MEDS ORDERED: MAGNESIUM SULFATE 1 GM PREMIX 100 ML IV ONE (10:30)
--- NOTE | 2016-08-10 11:06 | HHI.PR ---
Subjective Subjective Notes No fevers overnight Tolerating diet. Objective Vitals/I&O Vital Signs Date Time Temp Pulse Resp B/P Pulse Ox O2 Delivery O2 Flow Rate FiO2 08/10/16 07:16 98.2 85 20 130/77 98 08/09/16 09:30 Nasal Cannula 1.00 Labs Laboratory Tests Test 08/10/16 08:35 White Blood Count 10.0 Red Blood Count 3.93 Hemoglobin 11.6 Hematocrit 34.3 Mean Corpuscular Volume 87.1 Mean Corpuscular Hemoglobin 29.5 Mean Corpuscular Hemoglobin 33.9 Concent Red Cell Distribution Width 12.6 Platelet Count 235 Mean Platelet Volume 8.1 Neutrophils (%) (Auto) 73.0 Lymphocytes (%) (Auto) 18.5 Monocytes (%) (Auto) 7.7 Eosinophils (%) (Auto) 0.5 Basophils (%) (Auto) 0.3 Neutrophils # (Auto) 7.3 Lymphocytes # (Auto) 1.9 Monocytes # (Auto) 0.8 Eosinophils # (Auto) 0.1 Basophils # (Auto) 0.0 CBC Comment DIFF FINAL Differential Comment Sodium Level 137 Potassium Level 3.3 Chloride Level 103 Carbon Dioxide Level 25.5 Anion Gap 9 Blood Urea Nitrogen 5 Creatinine 0.78 Estimat Glomerular Filtration 115 Rate Random Glucose 99 Calcium Level 7.6 Date/Time Procedure Status Source Growth 08/08/16 01:57 Aerobic Blood Culture - Preliminary Resulted Blood Peripheral NO GROWTH IN 1 DAY 08/08/16 01:57 Anaerobic Blood Culture - Preliminary Resulted Blood Peripheral NO GROWTH IN 1 DAY Lungs: Clear Abdomen: Non-distended, Non-tender Narrative Exam Slightly cloudy drainage in VINAY A/P Assessment and Plan Assessment and Plan 31 year old male POD2 lap appendectomy; perforated Tolerating diet -Medical management following for diabetes management Home today Follow up Dr. Stanley this week. Duarte Coles MD Aug 10, 2016 11:06
[2016-08-10 11:25] VITALS: BP 122/69; PULSE 79; RESP 20; TEMP 98.1; O2SAT 98
--- NOTE | 2016-08-13 23:06 | MP ---
cc: MITCH TERRY DATE OF SURGERY 08/08/2016 PREOPERATIVE DIAGNOSIS Acute appendicitis POSTOPERATIVE DIAGNOSIS Acute complicated appendicitis PROCEDURE Laparoscopic appendectomy with laparoscopic drainage intraabdominal abscess. ANESTHESIA General and local anesthetic ATTENDING SURGEON Vargas Terry MD HEMATOLOGY ONCOLOGY CONSULTANT Staff BLOOD LOSS Less than 10 mL COMPLICATIONS None FINDINGS Acute ruptured and gangrenous appendicitis. INDICATIONS FOR PROCEDURE The patient is a 31-year-old male with 24 hours of right lower quadrant nominal pain. The patient presented to [facility] and found to have an elevated white blood cell count and a CT scan concerning for ileitis versus appendicitis. The patient was transferred to the main hospital due to likely appendicitis. After discussion with the patient about risks, benefits and alternatives to laparoscopic appendectomy, I did recommend that the patient undergo laparoscopic appendectomy rather then continued observation due to in my opinion high suspicion for appendicitis. The patient agreed. PROCEDURE IN DETAIL After informed consent was obtained, the patient was taken to the operating room and placed in supine position, placed under general endotracheal anesthesia. The patient's abdomen was shaved, prepped and draped in sterile fashion. Time-out was performed. The abdomen was entered through a Christensen direct entry technique with a curvilinear incision below the umbilicus. The fascia was directly opened under visualization and a 10 mm balloon trocar was placed into the abdomen under direct visualization. I insufflated the abdomen and surveyed the abdomen with a 5 mm camera and there was no evidence of any complication from our entry. There was suppurative fluid in the right lower quadrant. We placed two 5-mm ports under visualization of the laparoscope in the left lower quadrant. We were then able to easily identify the appendix which was anterior. It was clearly ruptured and had intraabdominal abscess formed by the omentum and the sigmoid colon evolving off the abscess. This was drained with a suction cordwainer. We then were able to easily identify the appendix at the base which was normal at the base as the rupture was near the tip. We made a window around this with a [place] dissector and divided the base of the appendix with a white load on the echelon GI laparoscopic stapler. We also then divided the mesentery with the echelon laparoscopic GI stapler without difficulty. Appendix was removed through the abdomen with an EndoCatch bag. We then irrigated out the abdomen with approximately 1 liter of gentamicin irrigation until all irrigation suctioning was clear. I placed a 19-Amharic round Fernando drain to the inferior port incision in the right lower quadrant and pelvis and sutured in place with a nylon suture. At this point in time, we were then able to relocate the omentum back to the right lower quadrant in normal anatomic position. There was no evidence of any bleeding or leak from our staple lines. We removed ports under visualization of the laparoscope and expressed pneumoperitoneum. We closed the Christensen entry fascia with a [id number] 0 Vicryl suture. We closed the skin with 4-0 Monocryl and Dermabond. The patient was discontinued from anesthesia, taken to the PACU in stable condition. The patient tolerated the procedure well. No apparent complications. All counts were correct. I was present and scrubbed for the entire procedure. MD JANETH Beverly/ /8:33 AM /10:49 PM
--- NOTE | 2016-08-19 13:09 | HHI.PR ---
Subjective Remarks DATE OF SERVICE 08/10/15. Used translation service to go over insulin regimen with patient. Conveys understanding.. patient says he feels well, says Abd pain resolved Objective Objective Remarks GENERAL: Patient sitting up in bed. Appears comfortable. Alert and oriented x3. SKIN: Warm and dry. HEAD: Normocephalic. EYES: No scleral icterus. No injection or drainage. NECK: Supple, trachea midline. No JVD. CARDIOVASCULAR: Regular rate and rhythm. continues to have 2/6 systolic murmur in the left sternal border not radiating to the carotids RESPIRATORY: Breath sounds equal bilaterally. No accessory muscle use. GASTROINTESTINAL: Abdomen soft, non-tender, nondistended. MUSCULOSKELETAL: No cyanosis, or edema. BACK: Nontender without obvious deformity. No CVA tenderness. A/P Assessment and Plan ==== 08/10/16 DW pt. insulin f/u PCP //Sepsis on admission. Tachycardia. Leukocytosis, fever. Improving after appendectomy. //Acute appendicitis, //status post appendectomy 08/08. Post surgical management as per surgical service Pain management as per surgical service Patient with noted fever 101.7 on admission. 08/08 Switched to Zosyn today due to possibility of resistant gut bacteria. - Continues afebrile. Discussed with general surgery. Plan for transition to by mouth antibiotics, with discharge possibly tomorrow. //Chronic uncontrolled diabetes mellitus A1c 10. Patient diagnosed many years ago. - limited financial means. -Continue on insulin. -Appreciate health educator. -Will need insulin and diabetic supplies on discharge. Appreciate case management assistance. //Patient has systolic heart murmur. Vital signs are stable. Discussed with patient. Will need follow-up with a primary care physician. //Hypokalemia. Follow. //Tobaccoism. Cessation strongly advised. //Prophylaxis. As per surgical service. Discharge Planning Possible discharge home tomorrow. Patient is from [place] Patient will need diabetic supplies on discharge. Appreciate case management assistance. Espinoza Caraballo MD Aug 19, 2016 13:09
--- NOTE | 2016-09-13 14:38 | HHI.DS ---
Discharge Summary Admission Date Aug 07, 2016 at 17:02 Discharge Date: Aug 10, 2016 Admitting Diagnosis Acute Appendicitis Brief History 31 year old male POD1 lap appy; perforated PE at Discharge Alert and awake Cardio: RRR Resp: CTAB Abd: soft tender at incision sites Hospital Course This is a 31 year old male POD1 lap appy; perforated. The patient's pain was controlled using oral pain medications. He was transitioned to PO antibiotics. He was educated about diabetes management and insulin administration. The patient will follow up in the office. Pt Condition on Discharge: Good Discharge Disposition: Discharge Home Discharge Instructions DIET: Follow Instructions for: Diabetic Diet Activities you can perform: Partial Weight Bearing Other Activity Instructions: no lifting more than 10 lbs ok to Chiara Ly Sep 13, 2016 14:38
== END 2016-08-10 15:15 | disposition home or self-care (01) ==
LOC: PHED 13:50 → PHEDA 17:02 → HOCA 20:29
PROVIDERS: ADMIT Surgery; ATTEND Surgery
DX: K35.3 Acute appendicitis with localized peritonitis (principal); E11.65 Type 2 diabetes mellitus with hyperglycemia; E87.6 Hypokalemia; F12.90 Cannabis use, unspecified, uncomplicated; F17.210 Nicotine dependence, cigarettes, uncomplicated
CPT/HCPCS: 00840; 44970; 71020; 74177; 80048; 80053; 81001; 82948; 83036; 83605; 83690; 83735; 85025; 85610; 85730; 87040; 88304; 94150; 96361; 96365; 99285; G0378; J0131; J0744; J1100; J1130; J1650; J1815; J2250; J2270; J2405; J2543; J2710; J3010; J3475; J7030; Q9967

== ENCOUNTER 2016-08-12 09:40 | Emergency (ER) | payer SELFPAY ==
[~2016-08-12] VITALS: Ht 152.4 cm; Wt 68.0 kg
[~2016-08-12 09:40] MED LIST: AUGM875T PO; GLUCKIT15; GLUCTES12; INSU1MIS15; LANCETS1 MI1; LEVEMIR SQ; NOVOLOGP2 SQ
[2016-08-12 09:42] VITALS: BP 143/87; PULSE 89; RESP 16; TEMP 98.2; O2SAT 98
--- NOTE | 2016-08-12 10:24 | PD ---
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 He reports surgery on last Friday. He states that he was told to come the emergency department for drain removal. Patient is Thai-speaking and history and physical are done through official obstetrics gynecology md. According to the chart, patient had lap appendectomy with a perforated appendix by Dr. Stanley last week. He reports during it once this morning. He states the drainage is now a yellow drainage, please to be red. He reports minimal pain. No fevers or chills. He denies any other complaints at this time. PFSH Past Medical History Cancer: No Cardiovascular Problems: No Diabetes: Yes Endocrine: Yes Genitourinary: No Musculoskeletal: No Neurologic: No Psychiatric: No Reproductive: No Respiratory: No Social History Alcohol Use: Yes (OCCAS) Tobacco Use: Yes (RARELY) Substance Use: Yes (marijuana) Allergies-Medications (Allergen,Severity, Reaction): Coded Allergies: No Known Allergies (Unverified , 08/12/16) Reported Meds & Prescriptions Reported Meds & Active Scripts Active Levemir Inj (Insulin Detemir) 1,000 unit/ 10 ML Vial 4 Units SQ HS 30 Days Do not mix with any other Insulin. Novolog Inj (Insulin Aspart) 1,000 Unit/10 Ml Vial 1-9 Units SQ ACHS Max dose at bedtime:( )units; sugars less than 70,(0)units; sugars 150-199,(1) unit; sugars 200-249,(3) units; sugars 250-299,(5) units; sugars 300-349,(7) units; sugars greater than 349,(9) units Glucocom Test Strips (Blood Glucose Test Strips) 1 Summer Summer 1 Box .ROUTE DIRECTED Lancets 1 Mis Mis 1 Box .ROUTE DIRECTED Insulin Syringe/U-100/31G X 5/16" 1 ml 1 Mis Mis 1 Box .ROUTE DIRECTED Glucocom Blood Glucose Mo W/Device (Device) 1 Kit Kit 1 Kit .ROUTE DIRECTED Augmentin (Amoxicillin-Clavulanate) 875-125 mg Tab 875 Mg PO BID 10 Days not for use in CrCl <30 ml/min. Review of Systems Except as stated in HPI: all other systems reviewed are Neg Physical Exam Narrative GENERAL: Well-developed well-nourished male patient, ambulatory. Afebrile. SKIN: Warm and dry. HEAD: Normocephalic. Atraumatic EYES: No scleral icterus. No injection or drainage. NECK: Supple, trachea midline. No JVD or lymphadenopathy. CARDIOVASCULAR: Regular rate and rhythm without murmurs, gallops, or rubs. RESPIRATORY: Breath sounds equal bilaterally. No accessory muscle use. Lungs sounds clear to auscultation. GASTROINTESTINAL: Abdomen soft and nondistended. Suprapubic VINAY drain noted with approximately 20 mL of yellow drainage. Minimal tenderness to palpation. MUSCULOSKELETAL: No cyanosis, or edema. BACK: Nontender without obvious deformity. No CVA tenderness. Data Data Last Documented VS Vital Signs Date Time Temp Pulse Resp B/P Pulse Ox O2 Delivery O2 Flow Rate FiO2 08/12/16 09:42 98.2 89 16 143/87 98 MDM Medical Decision Making Medical Screen Exam Complete: Yes Emergency Medical Condition: No Medical Record Reviewed: Yes Differential Diagnosis VINAY drain removal versus medical clearance versus follow-up Narrative Course 31-year-old male presents to the emergency department for drain removal from surgery last week. Patient had a lap appendectomy with perforation by Dr. Stanley on Friday. Surgeon credit consultant is paged. [phone] - I spoke to Dr. Stanley. He states that this was a misunderstanding the patient was to go to his office. He would like the patient to go today to his [place] office at the second floor between 1 PM at 3 PM today and see him. I discussed with the patient via obstetrics gynecology md and he verbalizes understanding and states he'll go to his office today. I also wrote down these instructions for him and his daughter. A medical screening exam was completed at the patient is at the wrong location. A medical screening exam was performed: At the time of evaluation the presenting medical condition was determined not to be of an emergent nature. The patient was given the option of receiving additional care, but declined. Patient was given options for additional community resources from which to obtain care. The Patient Has Been advised to seek medical attention for their presenting complaint. The patient has been advised to return to the ER at any time if an emergent condition develops. Diagnosis Primary Impression: Encounter for medical screening examination Condition: Stable Tayler Velasco Aug 12, 2016 10:24
== END 2016-08-12 11:47 | disposition left against medical advice (07) ==
LOC: NEPA 09:40
DX: Z48.03 Encounter for change or removal of drains (principal)
CPT/HCPCS: 99281